=== PATIENT | male | born 1990 | race Two or more races ===

== ENCOUNTER 2021-08-26 12:02 | Emergency (ER) | payer MEDICAID ==
[~2021-08-26] VITALS: Ht 188 cm; Wt 111.1 kg
[2021-08-26 12:24] VITALS: BP 149/91
[2021-08-26] MEDS ORDERED: LIDOCAINE 1% HCL (LOCAL ANESTH.) INJ 20ML MDV ID ONE (15:00)
== END 2021-08-26 15:53 | disposition home or self-care (01) ==
LOC: ER 12:02
DX: S01.81XA Laceration without foreign body of other part of head, initial encounter (principal); F12.10 Cannabis abuse, uncomplicated; Y04.8XXA Assault by other bodily force, initial encounter; Y93.89 Activity, other specified; Y92.89 Other specified places as the place of occurrence of the external cause; Y99.8 Other external cause status
CPT/HCPCS: 12013; 70140; 99283; J2001; J7030